=== PATIENT | male | born 1945 | race Caucasian/White ===

== ENCOUNTER 2016-08-30 07:58 | Emergency (ER) | payer OTHER ==
--- NOTE | 2016-08-30 08:01 | ED ---
Laceration/Wound HPI - HPI Summary HPI Summary: Patient presents with a laceration to the base of his left thumb that he sustained when he reached into his pocket to get his pocket knife out. The knife was slightly open and cut his thumb. He applied direct pressure to control bleeding. His tetanus is up to date. He has full function in the thumb. - History of Current Complaint Stated Complaint: LT HAND LAC Hx Obtained From: Patient Mechanism of Injury: Sharp/Blunt Trauma Onset/Duration: Sudden Onset Aggravating: Movement Alleviating: Compression Timing: Constant Onset Severity: Moderate Current Severity: Moderate Associated Signs & Symptoms: Pain Related Hx: Dominant Hand (Right) - Allergy/Home Medications Allergies/Adverse Reactions: Allergies Allergy/AdvReac Type Severity Reaction Status Date / Time Penicillins [PCN] Allergy Eyes Verified 08/30/16 07:59 Itchy/Swollen/Red/Watery PMH/Surg Hx/FS Hx/Imm Hx Previously Healthy: Yes - Family History Known Family History: Positive: None - Social History Occupation: Employed Full-time Lives: With Family Alcohol Use: Rare Substance Use Type: Reports: None Smoking Status (MU): Never Smoked Tobacco Review of Systems Positive: Other - 2.5cm laceration to left thenar eminence All Other Systems Reviewed And Are Negative: Yes Physical Exam Triage Information Reviewed: Yes Vital Signs Reviewed: Yes Appearance: Positive: Well-Appearing, Well-Nourished, Pain Distress Skin: Positive: Warm, Skin Color Reflects Adequate Perfusion, Dry, Tender - 2.5cm laceration to left thenar eminence, Soft Head/Face: Positive: Normal Head/Face Inspection Eyes: Positive: EOMI, BUSHRA, Conjunctiva Clear ENT: Positive: Hearing grossly normal Respiratory/Lung Sounds: Positive: Breath Sounds Present Cardiovascular: Positive: RRR Musculoskeletal: Positive: Strength/ROM Intact Neurological: Positive: Sensory/Motor Intact, Alert, Oriented to Person Place, Time, NV Bundle Intact Distally Psychiatric: Positive: Affect/Mood Appropriate AVPU Assessment: Alert Procedures - Laceration/Wound Repair 1 Location: upper extremity - left thenar eminence Description: Linear Anesthesia: Local, 2.0%, Lido, Epi Length, Depth and Shape: 2.5cm long, 4mm wide, 3mm deep Betadine Prep?: No Irrigated w/ Saline (ccs): 300 Laceration/Wound Explored: clean Closure: Single Layer Debridement: minimal Suture Type: Nylon - 5.0 Number of Sutures: 14 Layer Closure?: No Sterile Dressing Applied?: Yes Laceration Repair Course/Dx - Differential Dx Differental Diagnoses: Abrasion, Avulsion, Cellulitis, Foreign Body, Hematoma, Laceration, Puncture Wound - Clinical Impression Provider Diagnoses: Laceration Discharge - Discharge Plan Condition: Stable Disposition: HOME Patient Education Materials: Laceration (ED) Referrals: Yanet Bender [Primary Care Provider] - Additional Instructions: Keep your dressing clean, dry and in place for the next 24 hours. You may then remove and shower. Pat dry and cover with a clean, dry band-aid if you are going to be in a "dirty" environment, otherwise it can remain open to air. Do not soak the wound in any body of water until the sutures are removed. Elevate the hand above your heart and use Ibuprofen 600mg three times daily with meals for the next 5-7 days to reduce pain and swelling. Follow-up with your primary care provider or return to the emergency department in 10-12 days for suture removal. Return to the emergency department sooner if your symptoms worsen.
[2016-08-30 10:00] VITALS: BP 138/70
== END 2016-08-30 09:58 | disposition home or self-care (01) ==
LOC: ED 07:58
DX: S61.412A Laceration without foreign body of left hand, initial encounter (principal); W26.0XXA Contact with knife, initial encounter; Y93.9 Activity, unspecified; Y92.9 Unspecified place or not applicable; Y99.9 Unspecified external cause status
CPT/HCPCS: 12001; 99281

== ENCOUNTER 2017-08-12 16:28 | Emergency (ER) | payer OTHER ==
[2017-08-12] MEDS ORDERED: Oseltamivir CAP* 75 MG CAP PO ONE (17:37)
--- NOTE | 2017-08-12 18:12 | ED ---
Influenza-Like Illness - HPI Summary HPI Summary: Flu like sx started Friday - hot with ST then felt okar. Yesterday, fever, chills, rigors, ST, cough, myalgias. Denies N/V/D, CP, ab pain. Has been taking acetaminophen for fever and staying hydrated. Mild HTN - takes lisinopril. Otherwise healty and active 72 y.o. male. - History of Current Complaint Chief Complaint: EDFluSymptoms Time Seen by Provider: 08/12/17 17:37 Hx Obtained From: Patient, Family/Medical Apparatus [employer] - - Allergy/Home Medications Allergies/Adverse Reactions: Allergies Allergy/AdvReac Type Severity Reaction Status Date / Time MS Penicillins [PCN] Allergy Eyes Verified 08/12/17 17:43 Itchy/Swollen/Red/Watery PMH/Surg Hx/FS Hx/Imm Hx Previously Healthy: Yes Cardiovascular History: Reports: Hx Hypertension - mild takes lisinopril Denies: Hx Myocardial Infarction Respiratory History: Denies: Hx Asthma, Hx Chronic Obstructive Pulmonary Disease (COPD) - Immunization History Immunizations Up to Date: Yes Infectious Disease History: No Infectious Disease History: Denies: Traveled Outside the [place] in Last 30 Days - Family History Known Family History: Positive: None - Social History Occupation: Retired Lives: With Family Alcohol Use: Rare Hx Substance Use: No Substance Use Type: Reports: None Hx Tobacco Use: No Smoking Status (MU): Never Smoked Tobacco Physical Exam Vital Signs On Initial Exam: Initial Vitals Temp Pulse Resp BP Pulse Ox 99.1 F 93 20 149/74 96 08/12/17 16:30 08/12/17 16:30 08/12/17 16:30 08/12/17 16:30 08/12/17 16:30 Diagnostics - Vital Signs Vital Signs Temp Pulse Resp BP Pulse Ox 08/12/17 16:30 99.1 F 93 20 149/74 96 - Laboratory Lab Results: Lab Results 08/12/17 Range/Units 16:53 Influenza A (Rapid) Positive H (Negative) Influenza B (Rapid) Negative (Negative) Lab Statement: Any lab studies that have been ordered have been reviewed, and results considered in the medical decision making process. Flu Symptom Course/Dx - Diagnoses Provider Diagnoses: Influenza A Discharge - Discharge Plan Condition: Stable Disposition: HOME Prescriptions: Oseltamivir CAP* [Tamiflu CAP*] 75 mg PO BID #9 cap Patient Education Materials: Influenza (ED) Referrals: Yanet Bender [Primary Care Provider] - Additional Instructions: Complete your course of tamiflu. Continue acetaminophen for fever. Return to ED if you develop chest pain, shortness of breath, intractable vomiting or diarrhea, dizziness, syncope. You may also try the following for comfort: Perform nasal wash/netti pot 2 x day with 8 ounces of warm water + 1/4 teaspoon of salt or saline nasal spray as needed Perform throat gargles with warm salt water as needed Drink 60+ ounces of water daily Sleep 8+ hours per night Avoid Dairy and sugar Drink hot herbal/decaf tea with lemon & honey Drink chicken broth (preferably organic, free range chicken) Use a humidifier in your house, but especially near bed at night. You may also keep home temperature at 68F or less. Try a facial steam with or without eucalyptus essential oil or Dex's vapor rub for decongestion. Avoid smoke, candles, perfumes/colonge, air fresheners, scented lotions, etc Consider taking Vitamin D3 5,000iu and Vitamin C 1,000mg every day during illness
[2017-08-12 18:46] VITALS: BP 115/86
== END 2017-08-12 18:44 | disposition home or self-care (01) ==
LOC: ED 16:28
DX: J09.X2 Influenza due to identified novel influenza A virus with other respiratory manifestations (principal); I10 Essential (primary) hypertension
CPT/HCPCS: 87502; 99282; A9270-GY